=== PATIENT | female | born 1970 | race Caucasian/White ===

== ENCOUNTER 2017-02-22 08:00 | Outpatient (CLI) | payer BC | END 2017-02-22 08:01 | disposition home or self-care (01) | DX: R19.7 Diarrhea, unspecified (principal) ==

== ENCOUNTER 2017-07-30 08:40 | Outpatient (CLI) | payer BC ==
[2017-07-30 13:35] LABS: BASOPHILS # (AUTO) 0.1 10^3/uL (0.0-0.1); BASOPHILS % (AUTO) 0.8 %; EOSINOPHILS # (AUTO) 0.2 10^3/uL (0.0-0.7); EOSINOPHILS % (AUTO) 2.7 %; HCT - HEMATOCRIT 40.7 % (37.0-47.0); HGB - HEMOGLOBIN 14.2 g/dL (12.0-16.0); LYMPHOCYTES # (AUTO) 1.9 10^3/uL (1.5-3.5); LYMPHOCYTES % (AUTO) 25.6 %; MEAN CORPUSCULAR HEMOGLOBIN 31.9 pg (27.0-31.0); MEAN CORPUSCULAR HGB CONC 34.9 g/dL (32.0-36.0); MEAN CORPUSCULAR VOLUME 91.3 fL (81.0-99.0); MONOCYTES # (AUTO) 0.5 10^3/uL (0.0-1.0); MONOCYTES % (AUTO) 7.1 %; NEUTROPHILS # (AUTO) 4.6 10^3/uL (1.5-6.6); NEUTROPHILS % (AUTO) 63.8 %; NUCLEATED RED BLOOD CELLS AUTO 0.1 /100WBC; RED BLOOD COUNT 4.46 10^6/uL (4.20-5.40); RED CELL DISTRIBUTION WIDTH 12.4 % (12.0-15.0); UNCORRECTED WHITE BLOOD COUNT 7.3 x10^3/uL; WHITE BLOOD COUNT 7.3 x10^3/uL (4.8-10.8)
[2017-07-30 14:04] LABS: THYROID STIMULATING HORMONE 1.01 uIU/mL (0.34-5.60)
[2017-07-30 14:06] LABS: ALBUMIN/GLOBULIN RATIO 1.4 (1.0-2.2); BILIRUBIN,TOTAL 0.6 mg/dL (0.2-1.0); BUN - BLOOD UREA NITROGEN 18 mg/dL (6-20); CALCIUM 8.9 mg/dL (8.5-10.3); CARBON DIOXIDE - CO2 25 mmol/L (21-32); CHLORIDE 107 mmol/L (101-111); CHOL/HDL RATIO 2.3 (<4.4); CHOLESTEROL 186 mg/dL; CREATININE 0.8 mg/dL (0.4-1.0); GFR - MDRD 78 (>89); GLUCOSE 87 mg/dL (70-100); HDL CHOLESTEROL 80 mg/dL; IRON 93 ug/dL (28-170); LDL/HDL RATIO 1.1 (<4.4); SODIUM 139 mmol/L (135-145); TOTAL IRON BINDING CAPACITY 406 ug/dL (250-450); TOTAL PROTEIN 6.6 g/dL (6.7-8.2); TRANSFERRIN 290 mg/dL (192-382); TRIGLYCERIDES 84 mg/dL; VLDL CHOLESTEROL 17 mg/dL
[2017-07-30 14:12] LABS: FERRITIN 10.5 ng/mL (11.0-306.8)
[2017-07-30 14:15] LABS: FOLATE 13.89 ng/mL (5.90 - >24.8)
[2017-07-30 14:30] LABS: HEMOGLOBIN A1C 0.5 g/dL
== END 2017-07-30 08:41 | disposition home or self-care (01) ==
LOC: LAB.F 08:40
PROVIDERS: ATTEND Registered Nurse Community Health
DX: E44.0 Moderate protein-calorie malnutrition (principal); E63.9 Nutritional deficiency, unspecified; Z13.0 Encounter for screening for diseases of the blood and blood-forming organs and certain disorders involving the immune mechanism; Z13.29 Encounter for screening for other suspected endocrine disorder
CPT/HCPCS: 36415; 80053; 80061; 82306; 82607; 82728; 82746; 83036; 83540; 84425; 84443; 84466; 85025

== ENCOUNTER 2017-08-11 09:33 | Outpatient (CLI) | payer BC ==
--- NOTE | 2017-08-13 17:28 | Mammography Report ---
DIGITAL BILATERAL SCREENING MAMMOGRAM: 08/11/2017 COMPARISON STUDY: Mammogram 03/22/2016. TECHNIQUE: Routine CC and MLO projections were obtained of the breasts. FINDINGS: Scattered fibroglandular tissue is present within the breasts. There are no dominant liane s, suspicious microcalcifications, or secondary signs of malignancy. In comparison to the previous st udies, there are no significant changes. ASSESSMENT: NO MAMMOGRAPHIC EVIDENCE OF MALIGNANCY. NO SIGNIFICANT INTERVAL CHANGES. RECOMMENDATION: Screening mammography is recommended annually. BI-RADS category 1 - negative. STANDARD QUALIFYING STATEMENTS 1. This examination was reviewed with the aid of Computed-Aided Detection (CAD). 2. A negative or benign imaging report should not delay biopsy if clinically suspicious findings are present. Consider surgical consultation if warranted. More than 5% of cancers are not identified by i maging. 3. Dense breasts may obscure an underlying neoplasm. JOB #: [id number] EXT JOB #:[id number]
== END 2017-08-11 09:34 | disposition home or self-care (01) ==
LOC: DI.S 09:33
PROVIDERS: ATTEND Physician Assistant
DX: Z12.31 Encounter for screening mammogram for malignant neoplasm of breast (principal)
CPT/HCPCS: 77067

== ENCOUNTER 2018-02-03 08:45 | Outpatient (CLI) | payer BC ==
[2018-02-03 18:33] LABS: BASOPHILS # (AUTO) 0.1 10^3/uL (0.0-0.1); BASOPHILS % (AUTO) 0.9 %; EOSINOPHILS # (AUTO) 0.1 10^3/uL (0.0-0.7); EOSINOPHILS % (AUTO) 2.2 %; HGB - HEMOGLOBIN 14.2 g/dL (12.0-16.0); LYMPHOCYTES # (AUTO) 2.3 10^3/uL (1.5-3.5); LYMPHOCYTES % (AUTO) 34.5 %; MEAN CORPUSCULAR HEMOGLOBIN 30.7 pg (27.0-31.0); MEAN CORPUSCULAR HGB CONC 33.4 g/dL (32.0-36.0); MEAN CORPUSCULAR VOLUME 91.7 fL (81.0-99.0); MEAN PLATELET VOLUME 8.1 fL (7.9-10.8); MONOCYTES # (AUTO) 0.5 10^3/uL (0.0-1.0); MONOCYTES % (AUTO) 7.2 %; NEUTROPHILS # (AUTO) 3.7 10^3/uL (1.5-6.6); NEUTROPHILS % (AUTO) 55.2 %; PLT - PLATELET COUNT 376 10^3/uL (130-450); RED BLOOD COUNT 4.65 10^6/uL (4.20-5.40); RED CELL DISTRIBUTION WIDTH 12.5 % (12.0-15.0); WHITE BLOOD COUNT 6.7 x10^3/uL (4.8-10.8)
[2018-02-03 18:34] LABS: HB2 TOTAL 16.2 g/dL; HEMOGLOBIN A1C 0.54 g/dL; HEMOGLOBIN A1C % 5.2 % (4.6-6.2)
[2018-02-03 18:43] LABS: % IRON SATURATION 20 % (20-50); ALBUMIN 3.8 g/dL (3.2-5.5); ALBUMIN/GLOBULIN RATIO 1.3 (1.0-2.2); ALKALINE PHOSPHATASE 63 IU/L (42-121); ALT ALANINE AMINOTRANSFERASE 14 IU/L (10-60); AST ASPARTATE AMINOTRANSFERASE 20 IU/L (10-42); BILIRUBIN,TOTAL 0.7 mg/dL (0.2-1.0); BUN - BLOOD UREA NITROGEN 17 mg/dL (6-20); CALCIUM 8.9 mg/dL (8.5-10.3); CARBON DIOXIDE - CO2 29 mmol/L (21-32); CHLORIDE 106 mmol/L (101-111); CHOL/HDL RATIO 2.4 (<4.4); CHOLESTEROL 185 mg/dL; CREATININE 0.7 mg/dL (0.4-1.0); GFR - MDRD 90 (>89); GLUCOSE 80 mg/dL (70-100); HDL CHOLESTEROL 78 mg/dL; IRON 81 ug/dL (28-170); LDL CHOLESTEROL,CALCULATED 89 mg/dL; LDL/HDL RATIO 1.1 (<4.4); SODIUM 140 mmol/L (135-145); TOTAL IRON BINDING CAPACITY 409 ug/dL (250-450); TOTAL PROTEIN 6.8 g/dL (6.7-8.2); TRANSFERRIN 292 mg/dL (192-382); VLDL CHOLESTEROL 18 mg/dL
[2018-02-03 18:47] LABS: THYROID STIMULATING HORMONE 0.78 uIU/mL (0.34-5.60)
[2018-02-03 18:53] LABS: FERRITIN 15.5 ng/mL (11.0-306.8)
[2018-02-03 18:55] LABS: FOLATE 8.8 ng/mL (5.90 - >24.8)
== END 2018-02-03 08:46 | disposition home or self-care (01) ==
LOC: LAB.F 08:45
PROVIDERS: ATTEND Registered Nurse Community Health
DX: E46 Unspecified protein-calorie malnutrition (principal); E63.9 Nutritional deficiency, unspecified
CPT/HCPCS: 36415; 80053; 80061; 82306; 82607; 82728; 82746; 83036; 83540; 83721; 84425; 84443; 84466; 85025

== ENCOUNTER 2020-10-02 16:24 | Outpatient (CLI) | payer BC ==
--- NOTE | 2020-10-12 11:45 | Mammography Report ---
BILATERAL DIGITAL SCREENING MAMMOGRAM 3D/2D: 10/02/2020 CLINICAL: Routine screening. Comparison is made to exams dated: 08/11/2017 mammogram - [facility], 03/25/2016 [facility], and 06/15/2010 mammogram - [facility]. There are scattered fibroglandular elements in both breasts. There is a new 8 mm oval high density asymmetry with a circumscribed margin in the left breast at 4 o 'clock anterior depth. There also is a new irregular asymmetry with an indistinct margin in the left breast at 7 o'clock ant erior depth. No other significant masses, calcifications, or other findings are seen in either breast. IMPRESSION: INCOMPLETE: NEEDS ADDITIONAL IMAGING EVALUATION The new 8 mm oval high density asymmetry in the left breast at 4 o'clock anterior depth is indetermin ate. The new irregular asymmetry in the left breast at 7 o'clock anterior depth is indeterminate. Additio nal views with possible ultrasound are recommended. This exam was interpreted at Station ID: [id number]. NOTE: For mammograms, a report in lay terms will be sent to the patient. Approximately 15% of breast malignancies will not be visualized mammographically. In the management of a palpable breast mass, a negative mammogram must not discourage biopsy of a clinically suspicious lesion. Electronically Signed By: Clarice goins/:10/11/2020 18:19:34 ACR BI-RADS Category 0: Incomplete 3340F PARENCHYMAL PATTERN: (A) - The breast(s) demonstrate(s) scattered fibroglandular densities. BI-RADS CATEGORY: (0) - 0 Mammo and [place] [id number] Immediate follow-up LATERALITY: (B)
== END 2020-10-02 16:25 | disposition home or self-care (01) ==
LOC: DI 16:24
PROVIDERS: ATTEND Registered Nurse
DX: Z12.31 Encounter for screening mammogram for malignant neoplasm of breast (principal); N64.89 Other specified disorders of breast
CPT/HCPCS: 77067

== ENCOUNTER 2020-11-20 10:03 | Outpatient (CLI) | payer BC ==
--- NOTE | 2020-11-21 08:27 | Ultrasound Report ---
LIMITED ULTRASOUND OF LEFT BREAST: 11/20/2020 CLINICAL: Patient returns today to evaluate a focal asymmetry in the left breast. Comparison is made to exams dated: 11/20/2020 mammogram, 10/02/2020 mammogram, 08/11/2017 mammogram - [facility], and 03/25/2016 mammogram - [facility]. Ultrasound of the left breast 4 o'clock and 8 o'clock regions was performed. There is a possible 1.2 cm x 1.3 cm x 0.7 cm oval mass in the left breast at 8 o'clock middle depth 6 cm from the nipple. This oval mass is hyperechoic and isoechoic with posterior acoustic enhancement . Color flow imaging demonstrates that there is no vascularity present. This may correspond with t he mammographic abnormality. There also is a benign 0.7 cm x 0.6 cm x 0.5 cm oval simple cyst with a smooth internal wall in the l eft breast at 4 o'clock anterior depth 2 cm from the nipple. This oval simple cyst is anechoic with posterior acoustic enhancement. This correlates with mammography findings. IMPRESSION: PROBABLY BENIGN The possible 1.2 cm x 1.3 cm x 0.7 cm oval mass in the left breast at 8 o'clock middle depth is proba jose antonio benign. The 0.7 cm x 0.6 cm x 0.5 cm oval simple cyst in the left breast at 4 o'clock anterior depth is benig n. A follow-up left mammogram and an ultrasound in 6 months is recommended to demonstrate stability. This exam was interpreted at Station ID: [id number]. Electronically Signed By: Glenn abdalla/dennis:11/20/2020 12:40:25 Ultrasound BI-RADS: 3 Probably benign BI-RADS CATEGORY: (3) - 3 Mammo and [place] [id number] 6 month follow-up LATERALITY: (L)
--- NOTE | 2020-11-21 08:27 | Mammography Report ---
UNILATERAL LEFT DIGITAL DIAGNOSTIC MAMMOGRAM 3D/2D: 11/20/2020 CLINICAL: Patient returns today to evaluate a focal asymmetry in the left breast. Comparison is made to exams dated: 10/02/2020 mammogram, 08/11/2017 mammogram - [facility], and 03/25/2016 mammogram - [facility]. There are scattered fibroglandular elements in left breast. There is a 0.7 cm oval high density mass with a circumscribed margin in the left breast at 4 o'clock anterior depth. This is seen in additional views. There also is a new irregular low density focal asymmetry in the left breast at 8 o'clock anterior de pth. This is seen in additional views. No other significant masses or calcifications are seen in the breast. IMPRESSION: INCOMPLETE: NEEDS ADDITIONAL IMAGING EVALUATION The 0.7 cm oval high density mass in the left breast at 4 o'clock anterior depth is indeterminate. A n ultrasound is recommended. The new irregular low density focal asymmetry in the left breast at 8 o'clock anterior depth is indet erminate. An ultrasound is recommended. This exam was interpreted at Station ID: [id number]. NOTE: For mammograms, a report in lay terms will be sent to the patient. Approximately 15% of breast malignancies will not be visualized mammographically. In the management of a palpable breast mass, a negative mammogram must not discourage biopsy of a clinically suspicious lesion. Electronically Signed By: Glenn abdalla/dennis:11/20/2020 12:37:19 ACR BI-RADS Category 0: Incomplete 3340F PARENCHYMAL PATTERN: (A) - The breast(s) demonstrate(s) scattered fibroglandular densities. BI-RADS CATEGORY: (0) - 0 Ultrasound [id number] Immediate follow-up LATERALITY: (L)
== END 2020-11-20 10:04 | disposition home or self-care (01) ==
LOC: DI 10:03
PROVIDERS: ATTEND Registered Nurse
DX: N63.23 Unspecified lump in the left breast, lower outer quadrant (principal); N60.02 Solitary cyst of left breast

== ENCOUNTER 2021-04-02 08:00 | Outpatient (CLI) | payer BC ==
[2021-04-02 17:04] LABS: CLARITY,URINE CLOUDY (CLEAR)
[2021-04-02 17:07] LABS: BACTERIA,URINE Many /HPF (None Seen); BILIRUBIN,URINE COLOR INTERFERENCE (NEGATIVE); SQUAMOUS EPITHELIAL CELL,UR FEW Squamous (<= Few)
== END 2021-04-02 23:59 | disposition home or self-care (01) ==
LOC: LAB.S 08:00
PROVIDERS: ATTEND Emergency Medicine
DX: R30.0 Dysuria (principal)
CPT/HCPCS: 81001; 87077; 87086; 87181

== ENCOUNTER 2021-04-13 10:50 | Outpatient (CLI) | payer BC | END 2021-04-13 23:59 | disposition home or self-care (01) | LOC: COV 10:50 | DX: Z01.812 Encounter for preprocedural laboratory examination (principal); Z20.822 Contact with and (suspected) exposure to COVID-19 ==

== ENCOUNTER 2021-04-21 08:00 | Outpatient (CLI) | payer BC ==
[2021-04-21 18:35] LABS: BILIRUBIN,URINE NEGATIVE (NEGATIVE); GLUCOSE, URINE (UA) NEGATIVE (NEGATIVE); KETONES,URINE (UA) NEGATIVE (NEGATIVE); LEUKOCYTE ESTERASE, URINE LARGE (NEGATIVE); NITRITE,URINE POSITIVE (NEGATIVE); OCCULT BLOOD,URINE LARGE (NEGATIVE); PH,URINE 5.5 PH (5.0-7.5); PROTEIN,URINE TRACE mg/dL (NEGATIVE); UROBILINOGEN,URINE 0.2 (NORMAL) E.U./dL (NORMAL)
[2021-04-21 18:43] LABS: CLARITY,URINE CLOUDY (CLEAR)
[2021-04-21 18:57] LABS: RBC,URINE TNTC /HPF (0-5); WBC,URINE >25 /HPF (0-5)
[2021-04-21 18:58] LABS: BACTERIA,URINE Moderate /HPF (None Seen); SQUAMOUS EPITHELIAL CELL,UR RARE Squamous (<= Few)
== END 2021-04-21 23:59 | disposition home or self-care (01) ==
LOC: LAB.S 08:00
PROVIDERS: ATTEND Emergency Medicine
DX: R30.0 Dysuria (principal)
CPT/HCPCS: 81001; 87077; 87086; 87181

== ENCOUNTER 2021-05-23 08:00 | Outpatient (CLI) | payer BC ==
[2021-05-24 15:11] LABS: BILIRUBIN,URINE NEGATIVE (NEGATIVE); GLUCOSE, URINE (UA) NEGATIVE (NEGATIVE); KETONES,URINE (UA) NEGATIVE (NEGATIVE); LEUKOCYTE ESTERASE, URINE LARGE (NEGATIVE); NITRITE,URINE NEGATIVE (NEGATIVE); OCCULT BLOOD,URINE MODERATE (NEGATIVE); PH,URINE 6.5 PH (5.0-7.5); PROTEIN,URINE NEGATIVE (NEGATIVE); UROBILINOGEN,URINE 1 (NORMAL) E.U./dL (NORMAL)
[2021-05-24 15:21] LABS: CLARITY,URINE CLOUDY (CLEAR)
[2021-05-24 15:26] LABS: WBC,URINE >25 /HPF (0-5)
[2021-05-24 15:27] LABS: BACTERIA,URINE Few /HPF (None Seen); RBC,URINE TNTC /HPF (0-5); SQUAMOUS EPITHELIAL CELL,UR RARE Squamous (<= Few)
== END 2021-05-23 08:01 | disposition home or self-care (01) ==
LOC: LAB.R 08:00
PROVIDERS: ATTEND Emergency Medicine
DX: R30.0 Dysuria (principal)
CPT/HCPCS: 81001; 87086

== ENCOUNTER 2024-03-20 15:56 | Emergency (ER) | payer BC, OTHER ==
[2024-03-20 16:22] LABS: BASOPHILS % (AUTO) 0.2 %; EOSINOPHILS % (AUTO) 0.2 %; HCT - HEMATOCRIT 37.1 % (37.0-47.0); HGB - HEMOGLOBIN 10.9 g/dL (12.0-16.0); LYMPHOCYTES # (AUTO) 1.9 10^3/uL (1.5-3.5); LYMPHOCYTES % (AUTO) 14.4 %; MEAN CORPUSCULAR HEMOGLOBIN 24.1 pg (27.0-31.0); MEAN CORPUSCULAR HGB CONC 29.4 g/dL (32.0-36.0); MEAN CORPUSCULAR VOLUME 82.1 fL (81.0-99.0); MEAN PLATELET VOLUME 9.2 fL (7.9-10.8); MONOCYTES % (AUTO) 7.4 %; NEUTROPHILS % (AUTO) 77.5 %; PLT - PLATELET COUNT 705 10^3/uL (130-450); RED BLOOD COUNT 4.52 10^6/uL (4.20-5.40); RED CELL DISTRIBUTION WIDTH 15.7 % (12.0-15.0); WHITE BLOOD COUNT 12.9 x10^3/uL (4.8-10.8)
--- NOTE | 2024-03-20 16:30 | ED Physician Documentation ---
PD HPI CHEST PAIN - Stated complaint Stated Complaint: CHEST PAIN,HIGH RATE RATE - Chief complaint Chief Complaint: Cardiac - History obtained from History obtained from: Patient - Additional information Additional information: This is a very nice 53-year-old female who presents with intermittent left chest pain and heart palpitations over the course of the last 8 or 9 days. Patient states she will periodically have a sharp pain that is very localized in the left chest and goes underneath her breast and into the armpit. It is not associated with exertion. This lasted a second or 2, it is nonexertional and goes away on its own. It is typically associated with the sensation of heart palpitations or a racing heart. She has not not felt short of breath except when she feels the heart palpitations. She has not had any diaphoresis, no abdominal pain nausea vomiting or diarrhea. She has no urinary symptoms. She has had no lower extremity swelling. She does sit a lot for work but no prolo nged immobility, surgeries, recent travel. No history of DVT or PE. She has not had a cough or URI type symptoms. She states there is a strong family history of heart arrhythmias. She initially denied any new medication though but does later note that she was recently restarted on estradiol patch. She has been in surgical menopause since early 40s and was previously on hormone replacement however then stopped for a period of time and was recently restarted and wonders if that is contributing. She does take caffeine though only 1 to 2 cups of coffee a day and has not really had even not much recently. Review of Systems Constitutional: reports: Reviewed and negative Ears: reports: Reviewed and negative Nose: reports: Reviewed and negative Throat: reports: Reviewed and negative Cardiac: reports: Chest pain / pressure, Palpitations. denies: Pedal edema, Calf pain Respiratory: reports: Reviewed and negative GI: reports: Reviewed and negative : reports: Reviewed and negative PD PAST MEDICAL HISTORY - Past Medical History Past Medical History: Yes GI: GERD : Kidney stones - Past Surgical History Past Surgical History: Yes /CAR [place]OPER: Hysterectomy - Present Medications Home Medications: Ambulatory Orders Medication Instructions Recorded Confirmed Escitalopram Oxalate [Lexapro] 10 mg PO DAILY 03/24/13 12/03/21 Cetirizine [ZyrTEC] 10 mg PO DAILY 12/03/21 12/03/21 Cholecalciferol [Vitamin D3] 5,000 unit PO DAILY 12/03/21 12/03/21 Cyanocobalamin (Vitamin B-12) 5,000 mcg PO DAILY 12/03/21 12/03/21 [Vitamin B-12] Fluticasone [Flonase] 1 sprays [place] DAILY 12/03/21 12/03/21 Omeprazole 40 mg PO DAILY 12/03/21 12/03/21 - Allergies Allergies/Adverse Reactions: Allergies Allergy/AdvReac Type Severity Reaction Status Date / Time Sulfa (Sulfonamide Allergy Intermediate Rash Verified 03/20/24 16:03 Antibiotics) Penicillins Allergy Mild Rash Verified 03/20/24 16:03 acetaminophen [From Vicodin] Allergy Nausea Verified 03/20/24 16:03 hydrocodone bitartrate * Allergy Nausea Verified 03/20/24 16:03 [From Vicodin] thiopental sodium * AdvReac Severe Nausea/Vomi Verified 03/20/24 16:03 [From Pentothal] ting - Social History Does the pt smoke?: No Smoking Status: Never smoker Does the pt drink ETOH?: Yes Does the pt have substance abuse?: No - Immunizations Immunizations are current?: Yes - POLST Patient has POLST: No PD ED PE NORMAL - Vitals Vital signs reviewed: Yes - General General: Alert and oriented X 3, No acute distress, Well developed/nourished - HEENT HEENT: Atraumatic, Moist mucous membranes - Neck Neck: Supple, no meningeal sign, No JVD - Cardiac Cardiac: RRR, No murmur, No gallop, No rub, Strong equal pulses - Respiratory Respiratory: No respiratory distress, Clear bilaterally - Abdomen Abdomen: Normal bowel sounds, Soft, Non tender, Non distended - Derm Derm: Normal color, Warm and dry, No rash - Extremities Extremities: No deformity, No tenderness to palpate, Normal ROM s pain, No edema, No calf tenderness / cord Results - Vitals Vitals: Vital Signs - 24 hr 03/20/24 03/20/24 03/20/24 16:03 16:40 17:10 Temperature 36.5 C Heart Rate 80 71 70 Respiratory 16 18 18 Rate Blood Pressure 142/88 H 138/89 H 132/84 H Blood Pressure [Left] Blood Pressure [Right] O2 Saturation 100 99 98 03/20/24 03/20/24 03/20/24 17:12 17:30 18:00 Temperature Heart Rate 84 78 Respiratory 18 16 Rate Blood Pressure 107/72 124/65 Blood Pressure 134/89 H [Left] Blood Pressure 142/88 H [Right] O2 Saturation 99 100 03/20/24 03/20/24 18:30 18:39 Temperature Heart Rate 69 70 Respiratory 18 17 Rate Blood Pressure 117/76 117/76 Blood Pressure [Left] Blood Pressure [Right] O2 Saturation 99 100 Oxygen O2 Source Room air - EKG (time done) No standard instances EKG releavant findings:: EKG personally interpreted by author of this note. Relevant findings are: Rate: Rate (enter#) (75) Rhythm: NSR Intervals: Normal RI, RBBB QRS: Normal Ischemia: Normal ST segments Compare to prior EKG: Old EKG unavailable - Labs Labs: Laboratory Tests 03/20/24 03/20/24 03/20/24 16:18 16:18 17:54 WBC 12.9 H RBC 4.52 Hgb 10.9 L Hct 37.1 MCV 82.1 MCH 24.1 L MCHC 29.4 L RDW 15.7 H Plt Count 705 H MPV 9.2 Neut # (Auto) 10.0 H Lymph # (Auto) 1.9 [place] # (Auto) 1.0 Eos # (Auto) 0.0 Baso # (Auto) 0.0 Absolute Nucleated RBC 0.00 Nucleated RBC % 0.0 D-Dimer 231.1 Sodium 141 Potassium 3.9 Chloride 108 Carbon Dioxide 26 Anion Gap 7.0 BUN 30 H Creatinine 0.9 Estimated GFR (MDRD) 66 L Glucose 57 L* Calcium 9.1 Magnesium Total Bilirubin 0.3 AST 13 ALT 10 Alkaline Phosphatase 94 Troponin I High Sens < 2.3 L Total Protein 6.8 Albumin 3.7 Globulin 3.1 Albumin/Globulin Ratio 1.2 Lipase 50 TSH 03/20/24 17:54 WBC RBC Hgb Hct MCV MCH MCHC RDW Plt Count MPV Neut # (Auto) Lymph # (Auto) [place] # (Auto) Eos # (Auto) Baso # (Auto) Absolute Nucleated RBC Nucleated RBC % D-Dimer Sodium Potassium Chloride Carbon Dioxide Anion Gap BUN Creatinine Estimated GFR (MDRD) Glucose Calcium Magnesium 2.0 Total Bilirubin AST ALT Alkaline Phosphatase Troponin I High Sens Total Protein Albumin Globulin Albumin/Globulin Ratio Lipase TSH 0.63 - Rads (name of study) No standard instances Relevant Findings:: Final report received PD Medical Decision Making - ED course Complexity details: reviewed old records, reviewed results, re-evaluated patient, considered differential, d/w patient ED course: This is a 53-year-old female who presented with left-sided sharp and brief chest pains as described in HPI accompanied by heart palpitations and sensation of racing heart. On arrival here, the patient is in normal sinus rhythm and a rate in the 80s, stable blood pressure, and vital signs are otherwise reassuring. Her EKG does show a right bundle branch block, I do not have a prior EKG to compare with and patient is not aware of having a bundle branch block to her knowledge. Additional workup was significant for elevated BUN at 30, but otherwise normal CMP, magnesium 2.0, TSH 0.63, her D-dimer is less than 250, and her high-sensitivity troponin is less than 2.3. Chest x-ray is negative. The patient has been monitored on telemetry for the duration of her stay and she has not had any atypical rhythms, other than occasional PVC. 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 She also should likely have an outpatient stress test though the chest pain today is quite atypical and her workup thus far reassuring. It is notable that patient was recently started on the estradiol patch which potentially is contributing to her symptoms. I reviewed with patient this likely to improve with time no to follow-up with her provider for this to determine if a lower dose or different method of delivery may be helpful. Patient remained in stable condition here and is a stable for discharge at this time but was encouraged to return if any new or worsening symptoms. Departure - Departure Disposition: 01 Home, Self Care Clinical Impression: Atypical chest pain, Right bundle branch block (RBBB) on electrocardiogram (ECG) Condition: Good Instructions: ED Chest Pain Atypical Unkn Cause Comments: Your cardiac workup here is generally reassuring. You do have a right bundle branch block on your EKG. I don't know if this is new or not because I don't have a prior EKG for you. Either way, the additional lab work we did was reassuring. You were found to be slightly dehydrated, and your blood sugar was low. Your heart labs and your D-dimer, which helps this determine if you are at risk for blood clot, was negative. Your magnesium was normal, your thyroid stimulating hormone was also in the low normal range. I think you may be having episodes of a arrhythmia and I would like you to discuss this with your doctor and they can order an outpatient Zio patch to monitor this. They can also refer you to cardiology. I also recommend an outpatient stress test. If you have increasing symptoms however before this is done or you have any new concerns, please return to the ER. Forms: PCP List Discharge Date/Time: 03/20/24 18:52
[2024-03-20 16:36] LABS: LIPASE 50 U/L (11-82)
[2024-03-20 16:45] LABS: ALBUMIN 3.7 g/dL (3.2-5.5); ALBUMIN/GLOBULIN RATIO 1.2 (1.0-2.2); ALKALINE PHOSPHATASE 94 IU/L (42-121); ALT ALANINE AMINOTRANSFERASE 10 IU/L (10-60); AST ASPARTATE AMINOTRANSFERASE 13 IU/L (10-42); BILIRUBIN,TOTAL 0.3 mg/dL (0.2-1.0); BUN - BLOOD UREA NITROGEN 30 mg/dL (6-20); CALCIUM 9.1 mg/dL (8.5-10.3); CARBON DIOXIDE - CO2 26 mmol/L (21-32); CHLORIDE 108 mmol/L (101-111); CREATININE 0.9 mg/dL (0.6-1.3); GFR - MDRD 66 (>89); GLUCOSE 57 mg/dL (74-104); POTASSIUM 3.9 mmol/L (3.5-4.5); SODIUM 141 mmol/L (135-145); TOTAL PROTEIN 6.8 g/dL (6.4-8.9)
[2024-03-20 17:05] LABS: TROPONIN I HIGH SENSITIVITY < 2.3 ng/L (2.3-14.8)
--- NOTE | 2024-03-20 17:23 | XRAY Report ---
PROCEDURE: Chest 1V INDICATIONS: Chest pain TECHNIQUE: One view of the chest was acquired. COMPARISON: None. FINDINGS: Surgical changes and devices: None. Lungs and pleura: No pleural effusions or pneumothorax. Lungs are clear. Mediastinum: Mediastinal contours appear normal. Heart size is normal. Bones and chest wall: No suspicious bony lesions. Overlying soft tissues appear unremarkable. IMPRESSION: No acute cardiopulmonary process. Reviewed by: Shayne Jacob MD on 03/20/2024 4:22 PM AKDT Approved by: Shayne Jacob MD on 03/20/2024 4:22 PM AKDT Station ID: [id number]
[2024-03-20] MEDS: SODIUM CHLORIDE 0.9% 1,000 ML IV STA (18:22)
[2024-03-20 18:33] LABS: THYROID STIMULATING HORMONE 0.63 uIU/mL (0.34-5.60)
[2024-03-20 18:53] VITALS: BP 117/76; O2SAT 100
== END 2024-03-20 18:52 | disposition home or self-care (01) ==
LOC: ED 15:56
DX: I45.10 Unspecified right bundle-branch block (principal); R07.89 Other chest pain; Z82.49 Family history of ischemic heart disease and other diseases of the circulatory system; Z79.899 Other long term (current) drug therapy
CPT/HCPCS: 36415; 80053; 83690; 83735; 84443; 84484; 85025; 85379; 93005; 99284

== ENCOUNTER 2024-06-16 09:23 | Outpatient (CLI) | payer OTHER | END 2024-06-16 09:24 | disposition home or self-care (01) | LOC: LAB 09:23 | PROVIDERS: ATTEND Naturopath | DX: R89.1 Abnormal level of hormones in specimens from other organs, systems and tissues (principal) | CPT/HCPCS: 82024; 82533; 82627 ==

== ENCOUNTER 2024-06-25 08:58 | Outpatient (CLI) | payer OTHER | END 2024-06-25 08:59 | disposition home or self-care (01) | LOC: LAB.S 08:58 | PROVIDERS: ATTEND Naturopath | DX: R89.1 Abnormal level of hormones in specimens from other organs, systems and tissues (principal) | CPT/HCPCS: 36415; 82024; 82533; 82626; 82627 ==